=== PATIENT | male | born 1950 | race Two or more races ===

== ENCOUNTER 2025-06-18 20:49 | Emergency (ER) | payer MEDICARE, MEDICAID ==
[~2025-06-18] VITALS: Ht 167.6 cm; Wt 63.6 kg
--- NOTE | 2025-06-18 21:26 | ED.PDOC ---
History of Present Illness HPI Comments 74 year old male with a Hx of Bladder problems was accompanied by daughter for the c/c of Penial irritation to a Small Catheter. Daughter states that pt is currently living in an assisted care facility, and had a Catheter places approx 6x months ago. Pt states that the Catheter has now started to "split his penis" and wants the Catheter removed, and his Penis looked at. No other associated symptoms, modifiers, recent injuries or sick contacts present at this time. Time Seen by MD: 21:22 Reviewed Notes: Nurses Notes, Medications, Allergies Allergies: Coded Allergies: No Known Drug Allergy (Verified Allergy, Unknown, 06/18/25) Information Source: Patient, Relative (Child) Mode of Arrival: Wheelchair Severity: Moderate Timing: Months Prehospital treatment: None Past Medical History Past Medical History (Other): Urinary problems since Surgical History: Denies all surgeries Family History Family History: Unknown Social History Smoker: Non-Smoker Alcohol: Denies ETOH Use Drugs: Denies Drug Use Lives In: Home Constitutional: denies: chills, diaphoresis, fatigue, fever, malaise, sweats, weakness, others EENTM: denies: blurred vision, double vision, ear bleeding, ear discharge, ear drainage, ear pain, ear ringing, eye pain, eye redness, hearing loss, mouth pain, mouth swelling, nasal discharge, nose bleeding, nose congestion, nose pain, photophobia, tearing, throat pain, throat swelling, voice changes, others Respiratory: denies: cough, hemoptysis, orthopnea, SOB at rest, shortness of breath, SOB with excertion, stridor, wheezing, others Cardiovascular: denies: chest pain, dizzy spells, diaphoresis, Dyspnea on e xertion, edema, irregular heart beat, left arm pain, lightheadedness, palpitations, PND, syncope, others Gastrointestinal: denies: abdomen distended, abdominal pain, blood streaked bowels, constipated, diarrhea, dysphagia, difficulty swallowing, hematemesis, melena, nausea, poor appetite, poor fluid intake, rectal bleeding, rectal pain, vomiting, others Genitourinary: reports: incontinence, pain; denies: burning, dysuria, flank pain, frequency, hematuria, penile discharge, penile sore, testicle pain, testicle swelling, urgency, others Neurological: denies: dizziness, fainting, headache, left sided numbness, left sided weakness, numbness, paresthesia, pre-existing deficit, right sided numbness, right sided weakness, seizure, speech problems, tingling, tremors, weakness, others Musculoskeletal: denies: back pain, gout, joint pain, joint swelling, muscle pain, muscle stiffness, neck pain, others Integumetry: denies: bruises, change in color, change in hair/nails, dryness, laceration, lesions, lumps, rash, wounds, others Allergic/Immunocompromised: denies: Difficulty Healing, Frequent Infections, Hives, Itching, others Hematologic/Lymphatic: denies: anemia, blood clots, easy bleeding, easy bruisin g, swollen glands, others Endocrine: denies: excessive hunger, excessive sweating, excessive thirst, excessive urination, flushing, intolerance to cold, intolerance to heat, unexplained weight gain, unexplained weight loss, others Psychiatric: denies: anxiety, bipolar disorder, depression, hopeless, panic disorder, schizophrenia, sleepless, suicidal, others All Other Systems: Reviewed and Negative Physical Exam General Appearance: Mild Distress, Normal, Other (uses walker) HEENT: Normal ENT Inspection, Pharynx Normal, TMs Normal Neck: Full Range of Motion, Non-Tender, Normal, Normal Inspection Respiratory: Chest Non-Tender, Lungs Clear, No Accessory Muscle Use, No Respiratory Distress, Normal Breath Sounds Cardiovascular: No Edema, No JVD, No Murmur, No Gallop, Normal Peripheral Pulses, Regular Rate/Rhythm Breast Exam: Deferred Gastrointestinal: No Organomegaly, Non Tender, No Pulsatile Mass, Normal Bowel Sounds, Soft Genitalia: Penis (Mild irritation to the distal urethra, due to Small Catheter) Pelvic: Deferred Rectal: Deferred Extremities: No calf tenderness, Normal capillary refill, Normal inspection, Normal range of motion, Non-tender, No pedal edema Musculoskeletal : Apperance: Normal Neurologic: Alert, No Motor Deficits, Normal Affect, Normal Mood, No Sensory Deficits Cerebellar Function: Normal Reflexes: Normal Skin: Dry, Normal Color, Warm Lymphatic: No Adenopathy Was a procedure done? Was a procedure done?: No Differential Dx Considerations may include: Differential diagnosis includes but is not limited to: ureteral colic / stone, Aortic aneurysm or dissection, pyelonephritis, acute renal failure, musculoskeletal etiology and others X-Ray, Labs, Meds, VS Vital Signs Date Time Temp Pulse Resp B/P (MAP) Pulse Ox O2 Delivery O2 Flow Rate FiO2 06/18/25 23:00 Room Air* 0 21 06/18/25 23:00 98.3 61 14 128/68 (88) 97 98.3 06/18/25 21:09 98.3 57 14 137/74 (95) 95 98.3 Time of 1ST Reevaluation: 21:52 Reevaluation 1ST: Unchanged Patient Education/Counseling: Diagnosis, Treatment, Need For Follow Up Family Education/Counseling: Diagnosis, Treatment, Need For Follow Up SEPSIS Sepsis Screen Physician Orders Small Catheters (06/18/25 ) Vital Signs Date Time Temp Pulse Resp B/P (MAP) Pulse Ox O2 Delivery O2 Flow Rate FiO2 06/18/25 23:00 Room Air* 0 21 06/18/25 23:00 98.3 61 14 128/68 (88) 97 98.3 06/18/25 21:09 98.3 57 14 137/74 (95) 95 98.3 Departure 1 Departure Time of Disposition: 23:30 Impression: Primary Impression: Encounter for Small catheter removal Additional Impression: Urinary incontinence Disposition: HOME / SELF CARE / HOMELESS Condition: Stable Additional Instructions: Take your urinary antibiotic for the next 5 days Follow up with your primary physician Return to the Emergency Department for any worsening symptoms or concerns Discharged With: Self, Relative Critical Care Note Critical Care Time?: No Stability Stability form required: No Heart Score Heart Score: Heart Score Response (Comments) Value History N/A 0 EKG N/A 0 Age N/A 0 Risk Factors N/A 0 Troponin N/A 0 Total 0 I personally scribed for TERE UMAÑA MD ([email or web address]) on 06/18/25 at 21:26. Electronically submitted by Dariel Busby ([email or web address]). I personally scribed for TERE UMAÑA MD ([email or web address]) on 06/18/25 at 23:07. Electronically submitted by Dariel Busby ([email or web address]). TERE UMAÑA MD Jun 18, 2025 21:26
[2025-06-18 23:00] VITALS: BP 128/68; PULSE 61; RESP 14; TEMP 98.3; O2SAT 97
== END 2025-06-18 23:26 | disposition home or self-care (01) ==
LOC: ER 20:49
DX: R32 Unspecified urinary incontinence (principal); Z46.6 Encounter for fitting and adjustment of urinary device